=== PATIENT | male | born 1995 | race Asian ===

== ENCOUNTER → 2019-11-02 | Outpatient (CLI) | payer OTHER | LOC: COL.RAD 12:33 | DX: S06.0X9A Concussion with loss of consciousness of unspecified duration, initial encounter (principal) ==

== ENCOUNTER 2020-03-25 13:41 | Emergency (ER) | payer SELFPAY ==
[~2020-03-25] VITALS: Ht 181 cm; Wt 66.5 kg
[2020-03-25 13:49] VITALS: TEMP 97.9
[2020-03-25 14:29] LABS: BASO % 0.3 % (0.0-2.0); EOS % 0.7 % (0-4.0); GRAN # 3.3 (1.4-6.5); HEMATOCRIT 44.5 % (42.0-52.0); HEMOGLOBIN 15.4 g/dl (13.5-18.0); LYMPH % 34.3 % (20.0-51.0); MEAN CELL VOLUME 88 fl (80.0-100.0); MEAN CORPUSCULAR HEMOGLOBIN 31 pg (27.0-31.0); MEAN CORPUSCULAR HGB CONC 35 g/dl (33.0-37.0); MEAN PLATELET VOLUME 9.7 fl (7.4-10.4); MONO # 0.4 (0.1-0.6); MONO % 7.5 % (1.7-9.3); PLATELET COUNT 223 K/mm3 (130-400); RED BLOOD COUNT 5.04 M/mm3 (4.20-5.60); REDCELL DISTRIBUTION WIDTH-CV 11.9 % (11.5-14.5)
[2020-03-25] MEDS ORDERED: PROTONIX 40MG T40 MG PO ×6 (14:35→16:08)
[2020-03-25 14:48] LABS: ALANINE AMINOTRANSFERASE 19 U/L (4-49); ALBUMIN 4.6 gm/dL (3.5-5.0); ALKALINE PHOSPHATASE 71 U/L (50-136); ANION GAP 8 mmol/L (7-16); AST,SGOT 27 U/L (15-37); BLOOD UREA NITROGEN 15 mg/dL (9-20); CALCIUM 9.6 mg/dL (8.4-10.2); CARBON DIOXIDE 28 mmol/L (22-30); CHLORIDE 103 mmol/L (98-107); CREATININE, serum 0.88 (0.66-1.25); GLUCOSE 92 mg/dL (74-106); LIPASE 47 U/L (23-300); POTASSIUM 3.9 mmol/L (3.4-5.0); SODIUM 138 mmol/L (137-145); TOTAL PROTEIN 8.2 gm/dL (6.4-8.2)
[2020-03-25 15:05] LABS: TROPONIN-I < 0.012 ng/mL (0.000-0.035)
[2020-03-25 15:45] VITALS: BP 123/82; PULSE 89
== END 2020-03-25 15:50 | disposition home or self-care (01) ==
LOC: COL.ER 13:41
PROVIDERS: Emergency Medicine
DX: K21.0 Gastro-esophageal reflux disease with esophagitis (principal)
CPT/HCPCS: C9113; J1610; J2060; J2405

== ENCOUNTER 2020-03-31 16:14 | Emergency (ER) | payer SELFPAY ==
[~2020-03-31] VITALS: Ht 181 cm; Wt 65.1 kg
[~2020-03-31 16:14] MED LIST: PROTONIX 40MG T40 MG PO
[2020-03-31 16:21] VITALS: BP 124/86; TEMP 98.3
[2020-03-31] MEDS ORDERED: TRIAMCINOLONE A15 GM TP (16:48)
[2020-03-31 17:04] VITALS: PULSE 70
== END 2020-03-31 17:04 | disposition home or self-care (01) ==
LOC: COL.ER 16:14
DX: L25.9 Unspecified contact dermatitis, unspecified cause (principal)